=== PATIENT | female | born 1955 | race Caucasian/White ===

== ENCOUNTER 2017-12-25 11:21 | Day surgery (SDC) | payer OTHER ==
[~2017-12-25] VITALS: Ht 160 cm; Wt 54.2 kg
[~2017-12-25 11:21] MED LIST: ASPI81CH; CLOP75; Estradiol Tran1 EAC1; FEXPSEER PO; HORMONES; IBUP600 PO; IBUP800 PO; METO25ER; NITR.4SL; OXYACE5T PO; PRED10 PO; TRIA50 PO
[2017-12-25] MEDS ORDERED: ACYC200 (11:47)
[2017-12-25] MEDS ORDERED: ATOR20 (11:47)
[2017-12-25] MEDS ORDERED: MONT10T (11:47)
[2017-12-25] MEDS ORDERED: ZOLP10 (11:47)
[2017-12-25] MEDS ORDERED: LATANOPROST2.5 ML (11:48)
== END 2017-12-25 13:14 | disposition home or self-care (01) ==
LOC: ORSCSDS 11:21
PROVIDERS: Internal Medicine Gastroenterology
PROC: 0DBE8ZX Excision of Large Intestine, Via Natural or Artificial Opening Endoscopic, Diagnostic (ICD-10-PCS; principal; 2017-12-25 12:30)
PROC: 0DBB8ZX Excision of Ileum, Via Natural or Artificial Opening Endoscopic, Diagnostic (ICD-10-PCS; principal; 2017-12-25 12:30)
PROC: 0DB68ZX Excision of Stomach, Via Natural or Artificial Opening Endoscopic, Diagnostic (ICD-10-PCS; principal; 2017-12-25 12:30)
PROC: 0DB98ZX Excision of Duodenum, Via Natural or Artificial Opening Endoscopic, Diagnostic (ICD-10-PCS; principal; 2017-12-25 12:30)
DX: R19.4 Change in bowel habit (principal); K22.2 Esophageal obstruction; K64.1 Second degree hemorrhoids; K57.30 Diverticulosis of large intestine without perforation or abscess without bleeding; K30 Functional dyspepsia; I25.10 Atherosclerotic heart disease of native coronary artery without angina pectoris; Z79.01 Long term (current) use of anticoagulants; Z79.82 Long term (current) use of aspirin; Z79.899 Other long term (current) drug therapy; E78.00 Pure hypercholesterolemia, unspecified
CPT/HCPCS: 88305; 88342; J7120

== ENCOUNTER 2019-02-27 17:13 | Emergency (ER) | payer OTHER ==
[~2019-02-27] VITALS: Ht 160 cm; Wt 54.4 kg
[~2019-02-27 17:13] MED LIST changes: +ACYC200; +ATOR20; +LATANOPROST2.5 ML; +MONT10T; +ZOLP10
== END 2019-02-27 18:41 | disposition home or self-care (01) ==
LOC: ER 17:13
DX: M79.661 Pain in right lower leg (principal); Z88.8 Allergy status to other drugs, medicaments and biological substances; Z88.5 Allergy status to narcotic agent; Z79.899 Other long term (current) drug therapy; Z79.82 Long term (current) use of aspirin
CPT/HCPCS: 93971; 99283-25

== ENCOUNTER 2019-04-10 06:30 | Day surgery (SDC) | payer OTHER ==
[~2019-04-10] VITALS: Ht 160 cm; Wt 57.0 kg
[~2019-04-10 06:30] MED LIST changes: +FOLGARD TABLET1 EACH PO; +GLUC500 PO; +NITR.4SL SL; +POTASSIUM GLUCO90 MG PO; +Super B With V1 EACH PO; +VITAFOL PO; +[UNRECOGNIZED DRUG - OTHER] PO
[2019-04-10] MEDS ORDERED: CLIMARA1 EACH TOP (07:24)
--- NOTE | 2019-04-10 08:52 | NUR ---
PT ARRIVED TO [facility]ERY FROM [facility]. PT DENIES PAIN OR SOB. MONITOR SR 60'S, B/P 143/84, SPO2 97% RA. R GROIN NO SWELLING/HEMATOMA, [address], BLE PULSES DP 1+ AND 2+ PT.
--- NOTE | 2019-04-10 12:21 | NUR ---
pt ambulates to restroom and back without diff. R groin site remains clear. No Bleeding or hematoma noted. VSS. Pt assisted with dresses self. NADN
--- NOTE | 2019-04-10 12:29 | NUR ---
PT VERBALIZES UNDERSTANDING WRITTEN AND VERBAL ORDERS. PT DENIES QUESTIONS OR CONCERNS. PT DC TO HOME VIA WC BY FRIEND. PT DC WITH DISK OF ECHO/ANGIOGRAM TO BRING TO APPT WITH DR LVOE AT [facility].
== END 2019-04-10 12:30 | disposition home or self-care (01) ==
LOC: MHTC 06:30
PROC: B2111ZZ Fluoroscopy of Multiple Coronary Arteries using Low Osmolar Contrast (ICD-10-PCS; principal; 2019-04-10)
DX: I25.10 Atherosclerotic heart disease of native coronary artery without angina pectoris (principal); E78.2 Mixed hyperlipidemia; I10 Essential (primary) hypertension; Z88.5 Allergy status to narcotic agent; Z79.899 Other long term (current) drug therapy; Z79.01 Long term (current) use of anticoagulants; Z79.82 Long term (current) use of aspirin
CPT/HCPCS: 93306; 93454; C1769; C1894; J1644; J2250; J7030; Q9967

== ENCOUNTER → 2019-04-22 | Outpatient (CLI) | payer OTHER ==
[~2019-04-22] MED LIST changes: +CLIMARA1 EACH TOP
== END | disposition home or self-care (01) ==
LOC: LAB SHORT 14:08 → LAB EV 14:08
DX: N39.0 Urinary tract infection, site not specified (principal)
CPT/HCPCS: 87077; 87086; 87186

== ENCOUNTER 2019-05-20 06:48 | Emergency (ER) | payer OTHER ==
[~2019-05-20] VITALS: Ht 160 cm; Wt 56.2 kg
[2019-05-20 07:21] LABS: BASOPHILS ABSOLUTE AUTO 0.04 K/mm3 (0.00-0.23); BASOPHILS PERCENT AUTO 1 % (0-2); EOSINOPHILS ABSOLUTE AUTO 0.12 K/mm3 (0.00-0.68); EOSINOPHILS PERCENT AUTO 3 % (0-6); Hematocrit 38.7 % (33.0-51.0); IMMATURE GRAN ABSOLUTE AUTO 0.01 K/mm3 (0.00-0.10); IMMATURE GRAN PERCENT AUTO 0 % (0-1); LYMPHOCYTES ABSOLUTE AUTO 2.25 K/mm3 (0.84-5.20); LYMPHOCYTES PERCENT AUTO 49 % (21-46); MONOCYTES ABSOLUTE AUTO 0.52 K/mm3 (0.16-1.47); MONOCYTES PERCENT AUTO 11 % (4-13); Mean Corpuscular HGB 31.1 pg (26.0-34.0); Mean Corpuscular HGB Conc 33.6 g/dL (31.5-36.5); Mean Corpuscular Volume 93 fL (80-100); Mean Platelet Volume 8.9 fL (9.1-12.4); NEUTROPHILS ABSOLUTE AUTO 1.65 K/mm3 (1.96-9.15); NEUTROPHILS PERCENT AUTO 36 % (41-73); Platelet Count 245 K/mm3 (150-400); RDW Coefficient Variation 12.1 % (11.7-14.2); RDW Standard Deviation 40.9 fL (35.1-46.3); Red Blood Cell Count 4.18 M/mm3 (3.80-5.20); White Blood Cell Count 4.59 K/mm3 (4.00-11.30)
[2019-05-20 07:37] LABS: Alanine Aminotransfer (ALT/SGP 24 U/L (12-78); Albumin, Blood 3.8 g/dL (3.4-5.0); Albumin/Globulin Ratio 1.2 (0.8-1.8); Alk Phos 81 U/L (50-136); Anion Gap 6 mmol/L (6-16); Aspartate Aminotrans (AST/SGOT 17 U/L (12-37); Bilirubin, Total 0.4 mg/dL (0.1-1.0); Blood Urea Nitrogen 18 mg/dL (8-24); Bun/Creatinine Ratio 24.7 (12.0-20.0); CO2, Blood 27 mmol/L (21-32); Calcium, Blood 8.6 mg/dL (8.5-10.1); Chloride, Blood 110 mmol/L (98-108); Creatinine, Blood 0.73 mg/dL (0.40-1.00); Globulin, Blood 3.3 g/dL (2.2-4.0); Glomerular Filtration Rate >60 (60-); Glucose, Blood 102 mg/dL (70-99); Potassium, Blood 3.6 mmol/L (3.5-5.5); Sodium, Blood 143 mmol/L (136-145); Total Protein, Blood 7.1 g/dL (6.4-8.2); Troponin I <0.015 ng/mL (0.000-0.040)
[2019-05-20 09:10] LABS: International Normalized Ratio 0.97; Prothrombin Time Results 10.3 Sec (9.7-11.5)
== END 2019-05-20 13:45 | disposition short-term general hospital (02) ==
LOC: ER 06:48
PROVIDERS: Emergency Medicine
DX: I10 Essential (primary) hypertension (principal); R07.2 Precordial pain; Z88.5 Allergy status to narcotic agent; Z79.899 Other long term (current) drug therapy; Z79.82 Long term (current) use of aspirin; E78.5 Hyperlipidemia, unspecified; I25.10 Atherosclerotic heart disease of native coronary artery without angina pectoris
CPT/HCPCS: 36415; 71046; 80053; 83880; 84484; 85025; 85610; 85730; 93005; 93010; 96365; 96366; 99285-25; J1644

== ENCOUNTER 2019-09-03 06:05 | Day surgery (SDC) | payer OTHER ==
--- NOTE | 2019-09-02 15:44 | NUR ---
PT DRESSES SELF WITH MINIMAL ASSISTANCE. PT TR BAND REMOVED FROM R RADIAL. DOT DRESSING APPLIED WITH SPLINT/SLING. PT IV DC'D. CATH INTACT. PRESSURE BANDAGE IN PLACE. PT DC TO HOME VIA WC BY THIS NURSE/ ESCORTED HOME BY S/O.
[~2019-09-03] VITALS: Ht 160 cm; Wt 55.0 kg
[~2019-09-03 06:05] MED LIST changes: -ASPI81CH; +ATOR40TA PO; +Aspir 8181 MG PO; +Cardizem CD 12120 MG PO; +IRON236 MG PO; -LATANOPROST2.5 ML; +LATANOPROST2.5 ML BOTHEYES; -METO25ER; +METO25ER PO; -ZOLP10; +ZOLP10 PO
[2019-09-03] MEDS ORDERED: RANEXA500 MG PO (10:05)
[2019-09-03] MEDS ORDERED: Isosorbide Mono30 MG PO (10:06)
--- NOTE | 2019-09-03 12:00 | NUR ---
PT UP TO BATHROOM WITH SBA. PT TOLERATED AMB WELL. -BLEEDING OR SWELLING R GROIN AREA.
--- NOTE | 2019-09-03 12:50 | NUR ---
PT AND FAMILY VERBALIZED UNDERSTANDING OF WRITTEN AND VERBAL D/C INST. -BLEEDING OR SWELLING R GROIN. IV REMOVED. PT TAKEN OUT OF THE HRT CENTER VIA W/C.
== END 2019-09-03 14:45 | disposition home or self-care (01) ==
LOC: MHTC 06:05
PROC: B201YZZ Plain Radiography of Multiple Coronary Arteries using Other Contrast (ICD-10-PCS; principal; 2019-09-03)
PROC: 4A023N7 Measurement of Cardiac Sampling and Pressure, Left Heart, Percutaneous Approach (ICD-10-PCS; principal; 2019-09-03)
PROC: B203YZZ Plain Radiography of Multiple Coronary Artery Bypass Grafts using Other Contrast (ICD-10-PCS; principal; 2019-09-03)
DX: Z48.812 Encounter for surgical aftercare following surgery on the circulatory system (principal); I25.119 Atherosclerotic heart disease of native coronary artery with unspecified angina pectoris; I25.719 Atherosclerosis of autologous vein coronary artery bypass graft(s) with unspecified angina pectoris; E78.00 Pure hypercholesterolemia, unspecified; I10 Essential (primary) hypertension; Z88.5 Allergy status to narcotic agent; Z88.6 Allergy status to analgesic agent; Z95.1 Presence of aortocoronary bypass graft
CPT/HCPCS: 93455; C1769; C1894; J1644; J7030; Q9967

== ENCOUNTER 2019-10-01 17:10 | Observation (INO) | payer OTHER ==
[~2019-10-01] VITALS: Ht 160 cm; Wt 54.0 kg
[~2019-10-01 17:10] MED LIST changes: +Isosorbide Mono30 MG PO; +RANEXA500 MG PO
[2019-10-01 18:10] LABS: BASOPHILS ABSOLUTE AUTO 0.03 K/mm3 (0.00-0.23); BASOPHILS PERCENT AUTO 1 % (0-2); EOSINOPHILS ABSOLUTE AUTO 0.07 K/mm3 (0.00-0.68); EOSINOPHILS PERCENT AUTO 1 % (0-6); Hematocrit 41.1 % (33.0-51.0); IMMATURE GRAN ABSOLUTE AUTO 0.01 K/mm3 (0.00-0.10); IMMATURE GRAN PERCENT AUTO 0 % (0-1); LYMPHOCYTES PERCENT AUTO 29 % (21-46); MONOCYTES ABSOLUTE AUTO 0.54 K/mm3 (0.16-1.47); MONOCYTES PERCENT AUTO 9 % (4-13); Mean Corpuscular HGB 30.8 pg (26.0-34.0); Mean Corpuscular HGB Conc 34.1 g/dL (31.5-36.5); Mean Corpuscular Volume 90 fL (80-100); Mean Platelet Volume 8.7 fL (9.1-12.4); NEUTROPHILS ABSOLUTE AUTO 3.78 K/mm3 (1.96-9.15); NEUTROPHILS PERCENT AUTO 61 % (41-73); Platelet Count 341 K/mm3 (150-400); RDW Coefficient Variation 12.8 % (11.7-14.2); RDW Standard Deviation 42.1 fL (35.1-46.3); Red Blood Cell Count 4.55 M/mm3 (3.80-5.20); White Blood Cell Count 6.23 K/mm3 (4.00-11.30)
[2019-10-01 18:37] LABS: Troponin I <0.015 ng/mL (0.000-0.040)
[2019-10-01 18:48] LABS: Alanine Aminotransfer (ALT/SGP 29 U/L (12-78); Albumin/Globulin Ratio 1.1 (0.8-1.8); Alk Phos 78 U/L (50-136); Anion Gap 7 mmol/L (6-16); Aspartate Aminotrans (AST/SGOT 14 U/L (12-37); Bilirubin, Total 0.5 mg/dL (0.1-1.0); Blood Urea Nitrogen 20 mg/dL (8-24); Bun/Creatinine Ratio 23.9 (12.0-20.0); CO2, Blood 28 mmol/L (21-32); Calcium, Blood 9.1 mg/dL (8.5-10.1); Chloride, Blood 103 mmol/L (98-108); Creatinine, Blood 0.84 mg/dL (0.40-1.00); Globulin, Blood 3.5 g/dL (2.2-4.0); Glomerular Filtration Rate >60 (60-); Glucose, Blood 92 mg/dL (70-99); Potassium, Blood 3.6 mmol/L (3.5-5.5); Sodium, Blood 138 mmol/L (136-145); Total Protein, Blood 7.5 g/dL (6.4-8.2)
[2019-10-01] MEDS ORDERED: DOTTI1 EACH TOP (19:22)
[2019-10-01] MEDS ORDERED: DILTIAZEM 24HR300 M2 PO (19:23)
[2019-10-01] MEDS ORDERED: Isosorbide Mono60 MG PO (19:24)
[2019-10-01] MEDS ORDERED: RANOLAZINE ER1000 MG PO (19:24)
--- NOTE | 2019-10-02 06:00 | NUR ---
ASSUMED CARE AT 0100. SEE ASSESSSMENT REVIEW. SLEEPING SOUNDLY. OOB TO BR A FEW TIMES TONIGHT. SR NOTED. DENIES ANY CHEST DISCOMFORT. REVIEWS MEDS AND DC OF [facility] AND AWARE ED MD HAS ORDERED TOPROL . REPORTS IT CAUSES NIGHT CROFT. LABS REMAIN WNL.
[2019-10-02 06:31] LABS: Anion Gap 6 mmol/L (6-16); Blood Urea Nitrogen 17 mg/dL (8-24); Bun/Creatinine Ratio 21.3 (12.0-20.0); CO2, Blood 27 mmol/L (21-32); Calcium, Blood 8.6 mg/dL (8.5-10.1); Chloride, Blood 105 mmol/L (98-108); Glomerular Filtration Rate >60 (60-); Glucose, Blood 100 mg/dL (70-99); Sodium, Blood 138 mmol/L (136-145)
== END 2019-10-02 10:35 | disposition home or self-care (01) ==
LOC: ER 17:10 → PCU 20:05
PROVIDERS: Nurse Practitioner Acute Care; Physician Assistant; ADMIT Hospitalist
DX: I25.110 Atherosclerotic heart disease of native coronary artery with unstable angina pectoris (principal); I25.2 Old myocardial infarction; I10 Essential (primary) hypertension; R00.1 Bradycardia, unspecified; E78.5 Hyperlipidemia, unspecified; Z95.5 Presence of coronary angioplasty implant and graft; Z95.1 Presence of aortocoronary bypass graft; Z90.710 Acquired absence of both cervix and uterus; Z88.5 Allergy status to narcotic agent; Z88.6 Allergy status to analgesic agent; Z79.82 Long term (current) use of aspirin; Z79.890 Hormone replacement therapy; Z79.899 Other long term (current) drug therapy
CPT/HCPCS: 36415; 71046; 80048; 80053; 83880; 84484; 85025; 93005; 93010; 99285-25; A9270-GY; G0378